=== PATIENT | male | born 1995 | race Caucasian/White ===

== ENCOUNTER 2019-04-05 14:03 | Emergency (ER) | payer OTHER, BC, SELFPAY ==
[2019-04-05 14:18] VITALS: BP 134/78; PULSE 145; RESP 20; TEMP 39.4; O2SAT 100
--- NOTE | 2019-04-05 15:17 | ED.GENADULT ---
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 No treatment. Dry cough with intermittent productive cough (green phlegm). Rhinorrhea and nasal congestion. Exacerbating factors consists of smoke exposures. Tactile fevers. No sore throat. No pain with swallowing. No voice changes. No drooling, neck or throat swelling. No nausea, vomiting, and abdominal pain. Denies chest pain, dyspnea, coughing up blood, difficulty swallowing, jaw pain, dental pain, facial pain, foreign body sensation, and rash. Jorje remains active. Some parts of this dictation were generated by voice recognition software and may contain typographical and/or grammatical inaccuracies. Related Data Allergies Allergy/AdvReac Type Severity Reaction Status Date / Time No Known Allergies Allergy Verified 04/05/19 14:17 Review of Systems Review of Systems: Narrative: CONSTITUTIONAL: Complains of fever, chills. Denies sweats. EYES: Denies visual changes, redness, discharge. ENT: Complains of rhinorrhea, congestion. Denies sore throat, otalgia. CARDIOVASCULAR: Denies chest pain, palpitations, edema. RESPIRATORY: Denies dyspnea, wheezing. Complains of dry cough, intermittent productive cough. GASTROINTESTINAL: Denies abdominal pain, nausea, vomiting, diarrhea. GENITOURINARY: Denies dysuria, hematuria, abnormal discharge. SKIN: Denies rash or itching. MUSCULOSKELETAL: Denies acute back pain, joint pain. Complains of myalgia. NEUROLOGIC: Denies numbness or focal weakness. Complains of intermittent GARRETT. PSYCHIATRIC: Denies anxiety or depression. All systems reviewed & are unremarkable except as noted in HPI and below. [facility] Past Medical History Medical History (Updated 04/06/19 @ 00:00 by Ravinder Dhillon) No significant past medical history Surgical History Surgical History (Updated 04/05/19 @ 15:58 by BALTA Mosquera) No significant past surgical history Family History Family History (Updated 04/05/19 @ 15:59 by BALTA Mosquera) Other No significant family history Social History Social History (Updated 04/05/19 @ 16:00 by BALTA Mosquera) Smoking packs per day: 1 Smoking cigarettes per day: 20.0 Years smoked: 3 Smoking pack-years: 3.00 Smoking status: Current every day smoker Alcohol intake: current Substance use: never Living arrangements: with family Occupation/Education: occupation Gender identity (if verbalized by the patient): Male Comments At time of signature, agree with nurse past medical, surgical, social, and family history. There is no relevant family history pertinent to the presenting complaint. Exam Narrative: Exam Narrative: GENERAL: This is a well-nourished, well-developed patient, in no apparent distress. Speaks in full sentences and ambulates with steady gait without dyspnea. HEAD: normocephalic, atraumatic. EYES: PERRL. Sclera clear/white. Vision is grossly intact. EARS: External ears normal, auditory canals clear and without drainage, TMs normal without perforation. Hearing grossly intact. NOSE: External nose normal with no obvious nasal discharge, nares with moderate redness and enlarged turbinates, clear rhinorrhea. THROAT: Mucous membranes moist, posterior pharynx with PND, mild erythema, no exudate, and normal tonsils. No drainage, no concern for Peritonsillar abscess. No drooling, trismus, or neck swelling. NECK: Neck supple, non-tender without lymphadenopathy, mass
[2019-04-05 15:24] VITALS: TEMP 39.4
[2019-04-05] MEDS: IBUPROFEN 400 MG TABLET 800 MG PO (15:24)
--- NOTE | 2019-04-05 15:34 | PC.NURSE ---
Unable to scan tylenol. Attempted by 2 different RN's. Med given and checked by 2 nurses.
[2019-04-05 15:54] VITALS: TEMP 39.1
== END 2019-04-05 15:51 | disposition home or self-care (01) ==
PROVIDERS: Emergency Provider Nurse Practitioner Family
DX: J10.1 Influenza due to other identified influenza virus with other respiratory manifestations (principal); F17.210 Nicotine dependence, cigarettes, uncomplicated
CPT/HCPCS: 87804; 99203; A9270; G0463